=== PATIENT | male | born 1955 | race Caucasian/White ===

== ENCOUNTER 2019-12-16 17:17 | Emergency (ER) | payer BC ==
--- NOTE | 2019-12-16 17:55 | CT ---
EXAM: CT brain without contrast HISTORY: Fall with head trauma COMPARISON: None TECHNIQUE: Multiple contiguous axial images were obtained and a CT of the brain without contrast. FINDINGS: The brain is normal in morphology and attenuation without focal lesions or confluent areas of infarction. There is no evidence of hydrocephalus, intracranial hemorrhage, or extra-axial fluid collection. The calvarium and overlying soft tissues are unremarkable. Fluid is seen in the bilateral maxillary s inuses and ethmoid air cells. The mastoid air cells are well aerated. IMPRESSION: No evidence of acute intracranial abnormality
[2019-12-16] MEDS ORDERED: Adacel (T-DAP) 0.5 ML SYRINGE ONE (18:08)
[2019-12-16] MEDS ORDERED: Triple Antibiotic Oint 1 GM Packet ONE (18:21)
== END 2019-12-16 19:14 | disposition home or self-care (01) ==
LOC: ERS 17:17
DX: S01.81XA Laceration without foreign body of other part of head, initial encounter (principal); I10 Essential (primary) hypertension; E11.9 Type 2 diabetes mellitus without complications; F17.220 Nicotine dependence, chewing tobacco, uncomplicated; Z79.899 Other long term (current) drug therapy
CPT/HCPCS: 12015; 70450; 90471; 90715

== ENCOUNTER 2022-10-25 10:55 | Observation (INO) | payer OTHER, BC ==
[2022-10-25] MEDS ORDERED: Acetaminophen 500 MG TAB ONE (11:17)
[2022-10-25 11:35] LABS: #Basophils 0.1 thou/uL (0.0-0.2); #Eosinphils 0.1 thou/uL (0.0-0.7); #Lymphocytes 1.3 thou/uL (1.20-3.40); #Monocytes 0.6 thou/uL (0.11-0.59); #Neutrophils 2.3 thou/uL (1.40-6.50); %Basophils 1.2 % (0.0-1.0); %Eosinophils 3.4 % (0.0-10.0); %Lymphocytes 29.3 % (21.0-51.0); %Monocytes 13.5 % (0.0-10.0); %Neutrophils 52.7 % (42.0-75.0); Hemoglobin 16.9 g/dL (14.0-18.0); Mean Corpuscular HGB CONC 33.9 g/dL (32.0-36.0); Mean Corpuscular Hemoglobin 37.1 pg (27.0-31.0); Mean Platelet Volume 8.6 fL (7.4-10.4); Platelet Count 228 10x3/uL (130-400); RBC Distribution Width 12.4 % (11.5-14.5); Red Blood Cell (RBC) Count 4.55 mill/uL (4.70-6.10); White Blood Cell (WBC) Count 4.3 10x3/uL (4.8-10.8)
[2022-10-25 11:57] LABS: ALT (SGPT) 60 U/L (8-55); AST (SGOT) 72 U/L (5-34); Albumin 3.7 g/dL (3.4-4.8); Alkaline Phosphatase 63 U/L (40-110); Anion Gap 19 mmol/L (10-20); BUN (Urea Nitrogen) 7 mg/dL (8.4-25.7); Bilirubin, Total 0.4 mg/dL (0.2-1.2); Calc. Creatinine Clearance 0 mL/min (70-130); Calcium 9.3 mg/dL (7.8-10.44); Carbon Dioxide 23 mmol/L (23-31); Chloride 103 mmol/L (98-107); Estimated GFR 95; Globulin 3.5 g/dL (2.4-3.5); Glucose 143 mg/dL (80-115); Potassium 4.1 mmol/L (3.5-5.1); Protein, Total 7.2 g/dL (5.8-8.1); Sodium 141 mmol/L (136-145)
[2022-10-25] MEDS ORDERED: Lidocaine 2% PF 5 ML VIAL ONE ×2 (13:01→13:02)
[2022-10-25] MEDS ORDERED: Lidocaine 1% w/Epinephrine 1:100K 20 ML VIAL ONE (13:02)
[2022-10-25] MEDS ORDERED: Cefepime 2 GM VIAL ONE (13:06)
[2022-10-25] MEDS ORDERED: Boostrix 0.5 ML (Tdap) VIAL (>/=7 yrs of age) ONE (13:38)
[2022-10-25 15:16] LABS: Bilirubin Negative (Negative); Blood, Urine Negative (Negative); Clarity Clear (Clear); Glucose, Urine (Dipstick) Normal (Negative); Ketone, Urine Negative (Negative); Leukocyte Negative Leu/uL (Negative); Nitrite Negative (Negative); Protein, Urine (Dipstick) Negative (Neg-Trace); Specific Gravity, Urine 1.012 (1.002-1.036); Urobilinogen Normal mg/dL (Less than 2)
[2022-10-25 15:51] LABS: SARS-CoV-2 NAA Rapid Test Not Detected (NotDetected)
[2022-10-25 16:32] LABS: Lactic Acid 2.2 mmol/L (0.5-2.2)
[2022-10-25] MEDS ORDERED: Dextrose 50% Abboject 50 ML SYRINGE SLOW IVP PRN (18:23)
[2022-10-25] MEDS ORDERED: Ondansetron ODT 4 MG TAB PO PRN (18:23)
[2022-10-25] MEDS ORDERED: HYDROcodone/Acetaminophen 5/325 mg Tablet PO PRN (18:23)
[2022-10-25] MEDS ORDERED: Dextrose 5% in Water 1,000 ML IV PRN (18:23)
[2022-10-25] MEDS ORDERED: HumaLOG 300 UNITS/3 ML VIAL SC PRN ×2 (18:23)
[2022-10-25] MEDS ORDERED: Acetaminophen 325 MG TAB PO PRN (18:23)
[2022-10-25] MEDS ORDERED: Ondansetron PF 4 MG/2 ML Vial IVP PRN (18:23)
[2022-10-25 19:04] LABS: Troponin I 0.023 ng/mL (< 0.028)
[2022-10-25 19:07] LABS: Magnesium 1.5 mg/dL (1.6-2.6)
[2022-10-25 19:17] LABS: Amphetamine Not Detected (NotDetected); Barbiturates Screen Not Detected (NotDetected); Benzodiazepine Screen Not Detected (NotDetected); Cocaine Metabolite Screen Not Detected (NotDetected); Methadone Not Detected (NotDetected); Methamphetamine Not Detected (NotDetected); Opiate Screen Not Detected (NotDetected); Oxycodone Screen Not Detected (NotDetected); Phencyclidine (PCP) Not Detected (NotDetected); THC/Cannabinoid Screen Not Detected (NotDetected); Tricyclic Screen Not Detected (NotDetected)
[2022-10-25] MEDS ORDERED: Magnesium 2 GM/50 ML(in water) 2 GM in Premix Bag 1 BAG IVPB SCH (19:30)
[2022-10-25 20:09] VITALS: BMI 39.7
[2022-10-25] MEDS: Heparin 5,000 UNITS/ML VIAL SC SCH (20:15)
[2022-10-25 22:04] LABS: Troponin I 0.027 ng/mL (< 0.028)
[2022-10-26 05:42] LABS: ALT (SGPT) 43 U/L (8-55); AST (SGOT) 43 U/L (5-34); Albumin 3.5 g/dL (3.4-4.8); Alkaline Phosphatase 57 U/L (40-110); Anion Gap 13 mmol/L (10-20); BUN (Urea Nitrogen) 10 mg/dL (8.4-25.7); Bilirubin, Total 0.8 mg/dL (0.2-1.2); Calc. Creatinine Clearance 150 mL/min (70-130); Calcium 8.9 mg/dL (7.8-10.44); Carbon Dioxide 25 mmol/L (23-31); Cardiac Risk 2.8 (Less than 4.5); Chloride 102 mmol/L (98-107); Cholesterol 178 mg/dl (< 200 Desired); Estimated GFR 97; Globulin 3.2 g/dL (2.4-3.5); Glucose 133 mg/dL (80-115); HDL Cholesterol 63 mg/dL (>60 Neg Risk); LDL Cholesterol, Calculated 96 mg/dL; Magnesium 1.9 mg/dL (1.6-2.6); Protein, Total 6.7 g/dL (5.8-8.1); Sodium 136 mmol/L (136-145); Triglycerides 93 mg/dL (Less than 150)
[2022-10-26] MEDS ORDERED: Dextrose 10% in Water 250 ML IVPB SCH (06:30)
[2022-10-26] MEDS ORDERED: HumaLOG 300 UNITS/3 ML VIAL SC SCH (06:30)
[2022-10-26 08:20] LABS: Hemoglobin 15.5 g/dL (14.0-18.0); Mean Corpuscular HGB CONC 33.9 g/dL (32.0-36.0); Mean Corpuscular Hemoglobin 36.7 pg (27.0-31.0); Platelet Count 208 10x3/uL (130-400); RBC Distribution Width 12.3 % (11.5-14.5); Red Blood Cell (RBC) Count 4.23 mill/uL (4.70-6.10); White Blood Cell (WBC) Count 5.6 10x3/uL (4.8-10.8)
[2022-10-26] MEDS ORDERED: Lisinopril/Hydrochlorothiazide 20/25 mg Tablet PO SCH (09:00)
[2022-10-26] MEDS ORDERED: OXAPROZIN 600 MG PO SCH (09:00)
[2022-10-26] MEDS ORDERED: DILTIAZEM HCL 180 MG PO SCH (09:00)
[2022-10-26 09:06] LABS: Eosinophils 1 % (0-10); Lymphocytes 15 % (21-51); MDiff Complete? YES; Macrocytosis SLIGHT = 6-15 cells (100X) (0-5/hpf); Monocytes 14 % (0-10); Neutrophil 69 % (42-75); Platelet Morphology Comment Appears Adequate
[2022-10-26] MEDS: Heparin 5,000 UNITS/ML VIAL SC SCH (09:20)
[2022-10-26] MEDS ORDERED: hydrALAZINE 20 MG/ML VIAL SLOW IVP SCH (13:30)
[2022-10-26 16:09] VITALS: BP 143/84; TEMP 97.7
== END 2022-10-26 17:13 | disposition home or self-care (01) ==
LOC: ERS 10:55 → ERHOLD 18:14 → 2SW 20:00
PROVIDERS: ADMIT Family Medicine; ATTEND Family Medicine
DX: I16.0 Hypertensive urgency (principal); R00.0 Tachycardia, unspecified; I10 Essential (primary) hypertension; E83.42 Hypomagnesemia; R74.01 Elevation of levels of liver transaminase levels; E11.9 Type 2 diabetes mellitus without complications; S01.81XA Laceration without foreign body of other part of head, initial encounter; M19.90 Unspecified osteoarthritis, unspecified site; F17.220 Nicotine dependence, chewing tobacco, uncomplicated; J32.9 Chronic sinusitis, unspecified; N62 Hypertrophy of breast; K57.30 Diverticulosis of large intestine without perforation or abscess without bleeding; I08.8 Other rheumatic multiple valve diseases; Z79.82 Long term (current) use of aspirin; Z20.822 Contact with and (suspected) exposure to COVID-19; W01.0XXA Fall on same level from slipping, tripping and stumbling without subsequent striking against object, initial encounter
CPT/HCPCS: 12013; 36415; 36416; 70450; 71045; 71275; 72125; 80053; 80061; 80306; 81003; 83605; 83735; 84100; 84443; 84484; 85025; 87040; 87086; 90471; 90715; 93005; 93306; 96361; 96365; 96372; 96374; 96375; G0378; J0360; J0692; J1644; J2001; J3475

== ENCOUNTER 2022-11-03 06:26 | Inpatient (IN) | payer BC ==
[2022-11-03] MEDS ORDERED: Tranexamic Acid 1,000 MG/10 ML VIAL ONE (06:54)
[2022-11-03] MEDS ORDERED: EPINEPHrine 1 MG/10 ML Abboject SYRINGE ONE ×2 (06:54→06:58)
[2022-11-03] MEDS ORDERED: diphenhydrAMINE 50 MG/ML VIAL ONE (06:54)
[2022-11-03] MEDS ORDERED: EPINEPHrine 1 MG/ML VIAL ONE (06:58)
[2022-11-03 09:14] VITALS: BMI 36.2
[2022-11-03 09:27] LABS: SARS-CoV-2 NAA Rapid Test Not Detected (NotDetected)
[2022-11-03] MEDS ORDERED: Sodium Chloride 0.9% 1,000 ML IV SCH (09:30)
[2022-11-03] MEDS ORDERED: Ondansetron PF 4 MG/2 ML Vial IVP PRN (09:30)
[2022-11-03] MEDS ORDERED: Ondansetron ODT 4 MG TAB SL PRN (09:30)
[2022-11-03] MEDS ORDERED: Acetaminophen 325 MG TAB PO PRN (09:30)
[2022-11-03] MEDS ORDERED: Dextrose 5% in Water 1,000 ML IV PRN (09:55)
[2022-11-03] MEDS ORDERED: Insulin Regular 300 UNITS/3 ML VIAL SC PRN ×2 (09:55)
[2022-11-03] MEDS ORDERED: Dextrose 50% Abboject 50 ML SYRINGE SLOW IVP PRN (09:55)
[2022-11-03] MEDS ORDERED: hydrALAZINE 20 MG/ML VIAL SLOW IVP PRN (09:56)
[2022-11-03 10:05] LABS: #Lymphocytes 0.4 thou/uL (1.20-3.40); #Neutrophils 6.3 thou/uL (1.40-6.50); %Basophils 0.1 % (0.0-1.0); %Eosinophils 0.1 % (0.0-10.0); %Lymphocytes 5.6 % (21.0-51.0); %Monocytes 0.7 % (0.0-10.0); %Neutrophils 93.6 % (42.0-75.0); Hemoglobin 16.4 g/dL (14.0-18.0); Mean Corpuscular HGB CONC 33.5 g/dL (32.0-36.0); Mean Corpuscular Hemoglobin 36.2 pg (27.0-31.0); Mean Platelet Volume 8.4 fL (7.4-10.4); Platelet Count 245 10x3/uL (130-400); RBC Distribution Width 12.2 % (11.5-14.5); Red Blood Cell (RBC) Count 4.53 mill/uL (4.70-6.10); White Blood Cell (WBC) Count 6.8 10x3/uL (4.8-10.8)
[2022-11-03 10:22] LABS: ALT (SGPT) 33 U/L (8-55); AST (SGOT) 39 U/L (5-34); Albumin 3.9 g/dL (3.4-4.8); Alkaline Phosphatase 58 U/L (40-110); Anion Gap 15 mmol/L (10-20); BUN (Urea Nitrogen) 18 mg/dL (8.4-25.7); Bilirubin, Total 0.7 mg/dL (0.2-1.2); Calc. Creatinine Clearance 118 mL/min (70-130); Calcium 9.8 mg/dL (7.8-10.44); Carbon Dioxide 26 mmol/L (23-31); Chloride 95 mmol/L (98-107); Estimated GFR 85; Globulin 3.4 g/dL (2.4-3.5); Glucose 286 mg/dL (80-115); Potassium 4.2 mmol/L (3.5-5.1); Protein, Total 7.3 g/dL (5.8-8.1); Sodium 132 mmol/L (136-145)
[2022-11-03 10:25] VITALS: TEMP 98.6
[2022-11-03] MEDS ORDERED: OXAPROZIN 600 MG PO SCH (16:30)
[2022-11-03] MEDS ORDERED: Atorvastatin Calcium 10 MG TAB PO SCH (21:00)
[2022-11-04] MEDS ORDERED: Aspirin 81 mg Enteric Coated Tablet PO SCH (09:00)
[2022-11-04] MEDS ORDERED: FLU VACC QS2022-23(65YR UP)/PF 240 MCG/0.7 ML SYRINGE IM ONE (09:00)
== END 2022-11-03 11:30 | disposition left against medical advice (07) | DRG 916 ==
LOC: ERS 06:26 → CCU 09:05
PROVIDERS: ADMIT Internal Medicine; ATTEND Internal Medicine
DX: T78.3XXA Angioneurotic edema, initial encounter (principal); E87.1 Hypo-osmolality and hyponatremia; T46.4X5A Adverse effect of angiotensin-converting-enzyme inhibitors, initial encounter; G47.33 Obstructive sleep apnea (adult) (pediatric); I10 Essential (primary) hypertension; E11.9 Type 2 diabetes mellitus without complications; Z88.8 Allergy status to other drugs, medicaments and biological substances; Z79.899 Other long term (current) drug therapy; Z79.82 Long term (current) use of aspirin; Z79.84 Long term (current) use of oral hypoglycemic drugs
CPT/HCPCS: 36415; 80053; 85025; 86850; 86900; 86901; 93005; 96365; 96372; 96375; J0171; J1200; U0002

== ENCOUNTER 2022-11-09 17:30 | Outpatient (CLI) | payer BC | END 2022-11-09 17:31 | disposition home or self-care (01) | LOC: SLEEPLAB 17:30 | PROVIDERS: ATTEND Family Medicine | DX: G47.33 Obstructive sleep apnea (adult) (pediatric) (principal); R53.83 Other fatigue; E66.9 Obesity, unspecified; R06.83 Snoring; I10 Essential (primary) hypertension; E11.9 Type 2 diabetes mellitus without complications; G47.00 Insomnia, unspecified; Z68.38 Body mass index [BMI] 38.0-38.9, adult | CPT/HCPCS: 95800 ==

== ENCOUNTER 2024-06-15 08:18 | Outpatient (CLI) | payer BC ==
[2024-06-15 11:41] LABS: ALT (SGPT) 26 U/L (8-55); AST (SGOT) 42 U/L (5-34); Albumin 3.1 g/dL (3.4-4.8); Alkaline Phosphatase 105 U/L (40-110); Anion Gap 16 mmol/L (10-20); BUN (Urea Nitrogen) 8 mg/dL (8.4-25.7); Bilirubin, Total 0.7 mg/dL (0.2-1.2); Calc. Creatinine Clearance 0 mL/min (70-130); Calcium 9.1 mg/dL (7.8-10.44); Carbon Dioxide 25 mmol/L (23-31); Chloride 99 mmol/L (98-107); Estimated GFR 94; Globulin 4.1 g/dL (2.4-3.5); Glucose 136 mg/dL (80-115); Potassium 3.8 mmol/L (3.5-5.1); Protein, Total 7.2 g/dL (5.8-8.1); Sodium 136 mmol/L (136-145)
[2024-06-15 13:06] LABS: #Basophils 0.06 10x3/uL (0.0-0.2); %Basophils 1.1 % (0.0-1.0); %Eosinophils 0.8 % (0.0-10.0); %Lymphocytes 11.6 % (21.0-51.0); %Monocytes 14.5 % (0.0-10.0); %Neutrophils 71.6 % (42.0-75.0); Hemoglobin 14.8 g/dL (14.0-18.0); Mean Corpuscular HGB CONC 38.9 g/dL (32.0-36.0); Mean Corpuscular Hemoglobin 44.7 pg (27.0-31.0); Mean Corpuscular Volume 114.8 fL (78.0-98.0); Mean Platelet Volume 10.4 fL (7.4-10.4); Platelet Count 217 10x3/uL (130-400); RBC Distribution Width 14.3 % (11.5-14.5); Red Blood Cell (RBC) Count 3.31 mill/uL (4.70-6.10)
== END 2024-06-15 08:19 | disposition home or self-care (01) ==
LOC: LABBT 08:18
PROVIDERS: ATTEND Internal Medicine Cardiovascular Disease
DX: Z01.812 Encounter for preprocedural laboratory examination (principal); R06.00 Dyspnea, unspecified
CPT/HCPCS: 80053; 85025

== ENCOUNTER 2024-06-16 09:31 | Day surgery (SDC) | payer BC ==
[2024-06-15 08:50] VITALS: BMI 35.9
[2024-06-16] MEDS ORDERED: Iopamidol 370 76% 100 ML VIAL ONE (10:38)
[2024-06-16] MEDS ORDERED: Nitroglycerin 50 MG/250 ML BOT 0 ML ONE (12:46)
[2024-06-16] MEDS ORDERED: Heparin 10,000 UNITS/ 10 ML VIAL ONE (12:46)
[2024-06-16] MEDS ORDERED: fentaNYL 50 mcg/mL 1 mL Vial ONE (12:56)
[2024-06-16] MEDS ORDERED: Midazolam HCl 2 mg/2 ml Vial ONE (12:56)
[2024-06-16] MEDS ORDERED: Verapamil 5 MG/2 ML VIAL ONE (12:57)
[2024-06-16] MEDS ORDERED: Adenosine 6 mg (2 mL) VIAL ONE (12:57)
[2024-06-16 13:06] LABS: Cardiac Risk 2.6 (Less than 4.5)
== END 2024-06-16 18:18 | disposition home or self-care (01) ==
LOC: SDC 09:31
PROVIDERS: ATTEND Internal Medicine Cardiovascular Disease
PROC: B205YZZ Plain Radiography of Left Heart using Other Contrast (ICD-10-PCS; principal; 2024-06-16)
PROC: 4A023N7 Measurement of Cardiac Sampling and Pressure, Left Heart, Percutaneous Approach (ICD-10-PCS; principal; 2024-06-16)
PROC: B200YZZ Plain Radiography of Single Coronary Artery using Other Contrast (ICD-10-PCS; principal; 2024-06-16)
DX: R06.02 Shortness of breath (principal); R07.89 Other chest pain; E11.9 Type 2 diabetes mellitus without complications; I10 Essential (primary) hypertension; I48.91 Unspecified atrial fibrillation; I45.10 Unspecified right bundle-branch block; R74.01 Elevation of levels of liver transaminase levels; R94.39 Abnormal result of other cardiovascular function study; I47.29 Other ventricular tachycardia; R53.83 Other fatigue; Z88.8 Allergy status to other drugs, medicaments and biological substances; Z87.891 Personal history of nicotine dependence; Z79.899 Other long term (current) drug therapy; Z79.82 Long term (current) use of aspirin
CPT/HCPCS: 80061; 93458; 99152; C1769; C1887; C1894; J0153; J1644; J2250; J3010

== ENCOUNTER 2024-07-17 08:30 | Inpatient (IN) | payer BC, MEDICARE ==
[2024-07-17 10:59] LABS: Hemoglobin A1c 5.5 % (4.0-6.0)
[2024-07-17 11:03] LABS: Anion Gap 14 mmol/L (10-20); BUN (Urea Nitrogen) 7 mg/dL (8.4-25.7); Calc. Creatinine Clearance 0 mL/min (70-130); Calcium 8.9 mg/dL (7.8-10.44); Carbon Dioxide 27 mmol/L (23-31); Chloride 101 mmol/L (98-107); Estimated GFR 95; Glucose 102 mg/dL (80-115); Potassium 4.3 mmol/L (3.5-5.1); Sodium 138 mmol/L (136-145)
[2024-07-17 11:15] LABS: #Basophils 0.12 10x3/uL (0.0-0.2); %Basophils 1.9 % (0.0-1.0); %Eosinophils 8.8 % (0.0-10.0); %Lymphocytes 17.5 % (21.0-51.0); %Monocytes 13.1 % (0.0-10.0); %Neutrophils 58.4 % (42.0-75.0); Hemoglobin 14.6 g/dL (14.0-18.0); Mean Corpuscular Hemoglobin 38.5 pg (27.0-31.0); Mean Corpuscular Volume 113.5 fL (78.0-98.0); Mean Platelet Volume 10.2 fL (7.4-10.4); Platelet Count 266 10x3/uL (130-400); RBC Distribution Width 14.2 % (11.5-14.5); Red Blood Cell (RBC) Count 3.79 mill/uL (4.70-6.10)
[2024-07-18] MEDS ORDERED: Lidocaine 1% MPF 2 ML VIAL ONE (07:12)
[2024-07-18] MEDS ORDERED: Bupivacaine PF 0.5% 30 ML VIAL ONE (07:32)
[2024-07-18] MEDS ORDERED: EPINEPHrine 1 MG/ML VIAL ONE (07:32)
[2024-07-18] MEDS ORDERED: Albumin 5% 500 ML ONE (07:32)
[2024-07-18] MEDS ORDERED: Dexamethasone 4 mg/ml Vial ONE (07:32)
[2024-07-18] MEDS ORDERED: PHENYLEPHRINE-NS 100 MCG/ML 10 ML SYRINGE ONE (07:33)
[2024-07-18] MEDS ORDERED: Heparin 10,000 UNITS/1 ML VIAL 30,000 UNITS in Sodium Chloride 0.9% 1,000 ML FS SCH (07:45)
[2024-07-18] MEDS ORDERED: Vancomycin 1 GM VIAL ONE (09:02)
[2024-07-18] MEDS ORDERED: Heparin 5,000 UNITS/ML VIAL ONE (09:02)
[2024-07-18] MEDS ORDERED: Mannitol 12.5 GM/50 ML ONE (09:02)
[2024-07-18] MEDS ORDERED: Lidocaine 2% PF 100 mg/5 ml Syringe ONE (09:02)
[2024-07-18] MEDS ORDERED: Thrombin 5000 UNITS/5 ML VIAL ONE (09:02)
[2024-07-18] MEDS ORDERED: Magnesium 5 GM/10 ML VIAL ONE (09:02)
[2024-07-18] MEDS ORDERED: Papaverine 60 MG/2 ML VIAL ONE (09:02)
[2024-07-18] MEDS ORDERED: Potassium Chloride 60 mEq (30 mL) VIAL ONE (09:02)
[2024-07-18] MEDS ORDERED: Esmolol 100 MG/10 ML VIAL ONE (09:02)
[2024-07-18] MEDS ORDERED: Cardioplegic Soln 1,000 ML BAG ONE (09:02)
[2024-07-18] MEDS ORDERED: Heparin 30,000 units/30 ml VIAL ONE (09:02)
[2024-07-18] MEDS ORDERED: Rocuronium Bromide 10 MG/ML (10ML VIAL) ONE ×2 (09:02)
[2024-07-18] MEDS ORDERED: Sodium Bicarb 50 mEq/50 ML VIAL ONE (09:02)
[2024-07-18] MEDS ORDERED: Calcium Chloride 1 GM/10 ML Abboject SYRINGE ONE (09:02)
[2024-07-18] MEDS ORDERED: Protamine Sulfate 250 MG/25 ML VIAL ONE (09:02)
[2024-07-18] MEDS ORDERED: PROPOFOL 200 MG/20 ML VIAL ONE (09:02)
[2024-07-18] MEDS ORDERED: Aminocaproic Acid 5 GM/20 ML VIAL ONE (09:02)
[2024-07-18] MEDS ORDERED: Isoflurane INH ANEST 250 ML BOTTLE ONE (10:21)
[2024-07-18] MEDS ORDERED: NOREPINEPHRINE 8 MG/250 ML-D5W 250 ML IVPB PRN (12:58)
[2024-07-18] MEDS ORDERED: Bisacodyl 10 MG SUPP PR PRN (12:58)
[2024-07-18] MEDS ORDERED: Nitroglycerin 50 MG/250 ML BOT 250 ML IVPB PRN (12:58)
[2024-07-18] MEDS ORDERED: hydrALAZINE 20 MG/ML VIAL SLOW IVP PRN (12:58)
[2024-07-18] MEDS ORDERED: Bisacodyl 5 MG TAB PO PRN (12:58)
[2024-07-18] MEDS ORDERED: Ipratropium/Albuterol 3 ML NEB NEB PRN (12:58)
[2024-07-18] MEDS ORDERED: Potassium Chloride 20 MEQ (100 mL) BAG IVPB PRN (12:58)
[2024-07-18] MEDS ORDERED: Acetaminophen 325 MG TAB PO PRN (12:58)
[2024-07-18] MEDS ORDERED: Mag-Al 1200 mg/1200 mg/30 ML UDCUP PO PRN (12:58)
[2024-07-18] MEDS ORDERED: Guaifenesin DM 100-10/5 ML UDCUP PO PRN (12:58)
[2024-07-18] MEDS ORDERED: Hetastarch 6% 500 ML 500 ML IVPB PRN (12:58)
[2024-07-18] MEDS ORDERED: Morphine 2 MG/ML VIAL SLOW IVP PRN (12:58)
[2024-07-18] MEDS ORDERED: Ondansetron PF 4 MG/2 ML Vial IVP PRN (12:58)
[2024-07-18] MEDS ORDERED: Albumin 5% 12.5 GM (250 mL) BOT IVPB PRN ×2 (12:58)
[2024-07-18] MEDS ORDERED: traMADol HCl 50 MG TAB PO PRN (12:58)
[2024-07-18 13:23] LABS: Base Excess (BEa) -2.7 mEq/L (-2.0 to +3.0); Hematocrit-ABG 40 % (42.0-52.0); Hemoglobin (Hb) 13.6 g/dL (14.0-18.0); O2 Tension (PaO2), arterial 143.2 mmHg (> 70.0); Potassium - ABG Lab 4.29 mmol/L (3.70-5.30)
[2024-07-18 13:25] LABS: Puncture Site Arterial Line
[2024-07-18 13:32] LABS: #Basophils 0.11 10x3/uL (0.0-0.2); %Basophils 0.8 % (0.0-1.0); %Eosinophils 3.6 % (0.0-10.0); %Lymphocytes 12.7 % (21.0-51.0); %Monocytes 5.9 % (0.0-10.0); %Neutrophils 76.3 % (42.0-75.0); Hematocrit 36.7 % (42.0-52.0); Hemoglobin 12.9 g/dL (14.0-18.0); Mean Corpuscular HGB CONC 35.1 g/dL (32.0-36.0); Mean Corpuscular Hemoglobin 40.8 pg (27.0-31.0); Mean Corpuscular Volume 116.1 fL (78.0-98.0); Mean Platelet Volume 10.6 fL (7.4-10.4); Platelet Count 192 10x3/uL (130-400); RBC Distribution Width 13.9 % (11.5-14.5); Red Blood Cell (RBC) Count 3.16 mill/uL (4.70-6.10)
[2024-07-18 13:44] LABS: INR-International Normal Ratio 1.3; Prothrombin Time 15.8 sec (12.0-14.7)
[2024-07-18 13:45] LABS: PTT 32.1 sec (22.9-36.1)
[2024-07-18 13:56] VITALS: BMI 38.2
[2024-07-18] MEDS ORDERED: Dextrose 5% in Water 1,000 ML IV PRN (14:15)
[2024-07-18] MEDS ORDERED: Dextrose 50% Abboject 50 ML SYRINGE SLOW IVP PRN (14:15)
[2024-07-18] MEDS ORDERED: Glucagon 1 MG/ML KIT SC PRN (14:15)
[2024-07-18 14:31] LABS: Anion Gap 14 mmol/L (10-20); BUN (Urea Nitrogen) 7 mg/dL (8.4-25.7); Calc. Creatinine Clearance 149 mL/min (70-130); Calcium 8.2 mg/dL (7.8-10.44); Carbon Dioxide 23 mmol/L (23-31); Chloride 110 mmol/L (98-107); Estimated GFR 96; Glucose 152 mg/dL (80-115); Potassium 4.7 mmol/L (3.5-5.1); Sodium 142 mmol/L (136-145)
[2024-07-18] MEDS: D5 1/2 NS w/20 mEq KCL 1,000 ML IV SCH (14:35)
[2024-07-18] MEDS: Magnesium 2 GM/50 ML(in water) 2 GM in Premix 1 BAG IVPB SCH (14:35)
[2024-07-18] MEDS: Insulin Regular, Human 100 UNIT/ML 10 ML VIAL SC PRN (14:46)
[2024-07-18] MEDS: INSULIN REGULAR IN 0.9 % NACL 100 UNITS in Premix 1 BAG IVPB SCH (16:17)
[2024-07-18 16:53] LABS: Actual Bicarbonate (HCO3a) 23.6 mEq/L (22-28); Base Excess (BEa) -2.9 mEq/L (-2.0 to +3.0); CO2 Tension 47.9 mmHg (35.0-45.0); Calcium, Ionized (arterial) 1.13 mmol/L (1.12-1.30); Carboxyhemoglobin (COHb) 1.4 gm% (0.0-3.0); Hematocrit-ABG 42 % (42.0-52.0); Hemoglobin (Hb) 14.4 g/dL (14.0-18.0); O2 Tension (PaO2), arterial 96.1 mmHg (> 70.0); Potassium - ABG Lab 4.71 mmol/L (3.70-5.30); pH, Arterial 7.311 (7.35-7.45)
[2024-07-18 17:04] LABS: ALV-art Gradient 129.225 mmHg (0-20); Puncture Site Arterial Line
[2024-07-18] MEDS: Ketorolac Tromethamine 30 MG (1 mL) VIAL IVP SCH (18:28)
[2024-07-18 18:47] LABS: Hematocrit 40.7 % (42.0-52.0); Hemoglobin 13.6 g/dL (14.0-18.0)
[2024-07-18 19:00] LABS: Potassium 4.5 mmol/L (3.5-5.1)
[2024-07-18] MEDS: fentaNYL 50 mcg/mL 1 mL Vial SLOW IVP PRN (19:26)
[2024-07-18] MEDS: CEFAZOLIN 2 GM in Sodium Chloride 0.9% 100 ML IVPB SCH (21:16)
[2024-07-18] MEDS: Atorvastatin Calcium 20 MG TAB PO SCH (21:16)
[2024-07-18] MEDS: Famotidine/PF 20 mg/2ml Vial SLOW IVP SCH (21:16)
[2024-07-19] MEDS: fentaNYL 50 mcg/mL 1 mL Vial SLOW IVP PRN (00:44)
[2024-07-19 04:27] LABS: #Basophils Less than 0.03 10x3/uL (0.0-0.2); #Eosinophils Less than 0.03 10x3/uL (0.0-0.7); %Basophils 0.2 % (0.0-1.0); %Lymphocytes 3.9 % (21.0-51.0); %Neutrophils 89.6 % (42.0-75.0); Hematocrit 34.7 % (42.0-52.0); Hemoglobin 12.1 g/dL (14.0-18.0); Mean Corpuscular HGB CONC 34.9 g/dL (32.0-36.0); Mean Corpuscular Volume 117.6 fL (78.0-98.0); Mean Platelet Volume 10.5 fL (7.4-10.4); Platelet Count 163 10x3/uL (130-400); RBC Distribution Width 13.8 % (11.5-14.5); Red Blood Cell (RBC) Count 2.95 mill/uL (4.70-6.10)
[2024-07-19 04:49] LABS: Anion Gap 10 mmol/L (10-20); BUN (Urea Nitrogen) 10 mg/dL (8.4-25.7); Calc. Creatinine Clearance 178 mL/min (70-130); Calcium 7.8 mg/dL (7.8-10.44); Carbon Dioxide 25 mmol/L (23-31); Chloride 106 mmol/L (98-107); Estimated GFR 101; Glucose 119 mg/dL (80-115); Potassium 4.4 mmol/L (3.5-5.1); Sodium 137 mmol/L (136-145)
[2024-07-19 05:15] LABS: Macrocytosis MODERATE=16-30 cells HPF (0-5); Platelet Adequacy Comment Platelets Normal
[2024-07-19] MEDS: traMADol HCl 50 MG TAB PO PRN (05:35)
[2024-07-19] MEDS: Potassium Chloride 10 MEQ TAB PO SCH (07:26)
[2024-07-19] MEDS: Furosemide 40 MG TAB PO SCH (07:26)
[2024-07-19] MEDS: Magnesium 2 GM/50 ML(in water) 2 GM in Premix 1 BAG IVPB SCH (07:26)
[2024-07-19] MEDS: Aspirin 325 MG TAB PO SCH (07:26)
[2024-07-19] MEDS: Pantoprazole DR 40 MG TAB PO SCH (07:26)
[2024-07-19] MEDS: Insulin Lispro 100 UNIT/ML 10 ML VIAL SC PRN (11:50)
[2024-07-19 16:01] LABS: Actual Bicarbonate (HCO3a) 22.8 mEq/L (22-28); Analyzer IN Cardio OR; Base Excess (BEa) -1.7 mEq/L (-2.0 to +3.0); CO2 Tension 38.2 mmHg (35.0-45.0); Calcium, Ionized (arterial) 1.03 mmol/L (1.12-1.30); Carboxyhemoglobin (COHb) 0.5 gm% (0.0-3.0); Hematocrit-ABG 40 % (42.0-52.0); Hemoglobin (Hb) 13.5 g/dL (14.0-18.0); O2 Tension (PaO2), arterial 417.7 mmHg (> 70.0); Potassium - ABG Lab 3.49 mmol/L (3.70-5.30); pH, Arterial 7.394 (7.35-7.45)
[2024-07-19 16:01] LABS: Actual Bicarbonate (HCO3a) 22.9 mEq/L (22-28); Analyzer IN Cardio OR; Base Excess (BEa) -0.2 mEq/L (-2.0 to +3.0); CO2 Tension 32.8 mmHg (35.0-45.0); Calcium, Ionized (arterial) 1.05 mmol/L (1.12-1.30); Carboxyhemoglobin (COHb) 0.4 gm% (0.0-3.0); Hematocrit-ABG 40 % (42.0-52.0); Hemoglobin (Hb) 13.7 g/dL (14.0-18.0); O2 Tension (PaO2), arterial 412.5 mmHg (> 70.0); Potassium - ABG Lab 4.45 mmol/L (3.70-5.30); pH, Arterial 7.462 (7.35-7.45)
[2024-07-19 16:02] LABS: Actual Bicarbonate (HCO3a) 22.1 mEq/L (22-28); Analyzer IN Cardio OR; Base Excess (BEa) -1.5 mEq/L (-2.0 to +3.0); CO2 Tension 33.8 mmHg (35.0-45.0); Calcium, Ionized (arterial) 1.17 mmol/L (1.12-1.30); Carboxyhemoglobin (COHb) 0.4 gm% (0.0-3.0); Hematocrit-ABG 39 % (42.0-52.0); Hemoglobin (Hb) 13.2 g/dL (14.0-18.0); O2 Tension (PaO2), arterial 399.2 mmHg (> 70.0); Potassium - ABG Lab 4.82 mmol/L (3.70-5.30); pH, Arterial 7.433 (7.35-7.45)
[2024-07-19 16:02] LABS: Actual Bicarbonate (HCO3v) 26.1 mEq/L (22-28); Analyzer IN Cardio OR; Base Excess 1.1 mEq/L (-2.0 to +3.0); Calcium, Ionized (venous) 0.99 mmol/L (1.16-1.32); Chloride (VBG) 104 mmol/L (98-106); Hematocrit-VBG 34 % (42.0-52.0); Hemoglobin (Hb) 11.7 g/dL (12.6-17.4); Potassium (VBG) 5.74 mmol/L (3.70-5.30); Sodium 137 mmol/L (133-146); pH (venous) 7.401 (7.32-7.43)
[2024-07-19 16:02] LABS: Actual Bicarbonate (HCO3a) 26.3 mEq/L (22-28); Analyzer IN Cardio OR; Base Excess (BEa) 1.2 mEq/L (-2.0 to +3.0); Calcium, Ionized (arterial) 0.98 mmol/L (1.12-1.30); Carboxyhemoglobin (COHb) 0.1 gm% (0.0-3.0); Hematocrit-ABG 34 % (42.0-52.0); Hemoglobin (Hb) 11.5 g/dL (14.0-18.0); O2 Tension (PaO2), arterial 410.9 mmHg (> 70.0); Potassium - ABG Lab 5.53 mmol/L (3.70-5.30); pH, Arterial 7.395 (7.35-7.45)
[2024-07-19 16:02] LABS: Actual Bicarbonate (HCO3a) 24.8 mEq/L (22-28); Analyzer IN Cardio OR; Base Excess (BEa) -0.3 mEq/L (-2.0 to +3.0); CO2 Tension 42.4 mmHg (35.0-45.0); Calcium, Ionized (arterial) 0.99 mmol/L (1.12-1.30); Hematocrit-ABG 34 % (42.0-52.0); Hemoglobin (Hb) 11.5 g/dL (14.0-18.0); O2 Tension (PaO2), arterial 370.9 mmHg (> 70.0); Potassium - ABG Lab 5.82 mmol/L (3.70-5.30); pH, Arterial 7.385 (7.35-7.45)
[2024-07-19 16:02] LABS: Actual Bicarbonate (HCO3a) 22.8 mEq/L (22-28); Analyzer IN Cardio OR; CO2 Tension 34.4 mmHg (35.0-45.0); Calcium, Ionized (arterial) 0.97 mmol/L (1.12-1.30); Carboxyhemoglobin (COHb) 0.3 gm% (0.0-3.0); Hematocrit-ABG 31 % (42.0-52.0); Hemoglobin (Hb) 10.4 g/dL (14.0-18.0); O2 Tension (PaO2), arterial 383.5 mmHg (> 70.0); Potassium - ABG Lab 4.93 mmol/L (3.70-5.30); pH, Arterial 7.439 (7.35-7.45)
[2024-07-19 16:03] LABS: Puncture Site Arterial Line
[2024-07-19 16:03] LABS: Puncture Site Arterial Line
[2024-07-19 16:03] LABS: Puncture Site Arterial Line
[2024-07-19 16:04] LABS: Puncture Site Arterial Line
[2024-07-19 16:04] LABS: Puncture Site Arterial Line
[2024-07-19 16:04] LABS: Puncture Site Arterial Line
[2024-07-20] MEDS: Carvedilol 3.125 MG TAB PO SCH (07:33)
[2024-07-20] MEDS: Potassium Chloride 10 MEQ TAB PO SCH (07:33)
[2024-07-20] MEDS: Furosemide 40 MG TAB PO SCH (08:08)
[2024-07-21] MEDS ORDERED: Milk Of Magnesia 30 ML UDCUP PO PRN (08:40)
[2024-07-21] MEDS ORDERED: diphenhydrAMINE 25 MG CAP PO PRN (08:40)
[2024-07-21] MEDS ORDERED: Mineral Oil ENEMA PR PRN (08:40)
[2024-07-21] MEDS ORDERED: Nitroglycerin 0.4 MG TAB (25 Tab Bottle) SL PRN (08:40)
[2024-07-21] MEDS ORDERED: Artificial Tear Ophth Sol 15 ML BOT EA EYE PRN (08:40)
[2024-07-22] MEDS: Metolazone 5 MG TAB PO SCH (09:52)
[2024-07-23 08:12] VITALS: BP 97/52; TEMP 98
== END 2024-07-23 11:02 | disposition home or self-care (01) | DRG 236 ==
LOC: SURG A 07-18 06:59 → CCU 07-18 13:22 → 2NO 07-21 16:23
PROVIDERS: ADMIT Thoracic Surgery (Cardiothoracic Vascular Surgery); ATTEND Thoracic Surgery (Cardiothoracic Vascular Surgery)
PROC: 02100Z9 Bypass Coronary Artery, One Artery from Left Internal Mammary, Open Approach (ICD-10-PCS; principal; 2024-07-18)
PROC: 021109W Bypass Coronary Artery, Two Arteries from Aorta with Autologous Venous Tissue, Open Approach (ICD-10-PCS; 2024-07-18)
PROC: 06BQ4ZZ Excision of Left Saphenous Vein, Percutaneous Endoscopic Approach (ICD-10-PCS; 2024-07-18)
PROC: 5A1221Z Performance of Cardiac Output, Continuous (ICD-10-PCS; 2024-07-18)
PROC: 02L70CK Occlusion of Left Atrial Appendage with Extraluminal Device, Open Approach (ICD-10-PCS; 2024-07-18)
PROC: 4A133R1 Monitoring of Arterial Saturation, Peripheral, Percutaneous Approach (ICD-10-PCS; 2024-07-18)
PROC: 30233J1 Transfusion of Nonautologous Serum Albumin into Peripheral Vein, Percutaneous Approach (ICD-10-PCS; 2024-07-18)
PROC: 3E033XZ Introduction of Vasopressor into Peripheral Vein, Percutaneous Approach (ICD-10-PCS; 2024-07-18)
DX: I25.10 Atherosclerotic heart disease of native coronary artery without angina pectoris (principal); E11.9 Type 2 diabetes mellitus without complications; F10.10 Alcohol abuse, uncomplicated; I10 Essential (primary) hypertension; G47.33 Obstructive sleep apnea (adult) (pediatric); E66.9 Obesity, unspecified; Z79.899 Other long term (current) drug therapy; Z79.84 Long term (current) use of oral hypoglycemic drugs
CPT/HCPCS: 36415; 36416; 71045; 80048; 82805; 83036; 85025; 85610; 85730; 86850; 86900; 86901; 86921; 93005; 93010; 93798; 94002; A4311; A4648; C1751; C1889; J0171; J0665; J1100; J1642; J1644; J1815; J1885; J2003; J2150; J2440; J2704; J2720; J3010; J3370; J3475; J3480; J3490; P9045; S0017